=== PATIENT | male | born 1940 | race Caucasian/White ===

== ENCOUNTER 2017-03-29 02:28 | Inpatient (IN) | payer MEDICARE, OTHER ==
[~2017-03-29] VITALS: Ht 165.1 cm; Wt 61.7 kg
[2017-03-29] VITALS (9 sets, daily range): BP systolic 158–206; BP diastolic 72–83
[2017-03-29] MEDS ORDERED: LEVEMIR100 U/M1 (03:20)
[2017-03-29 03:26] LABS: CALCIUM 8.9 mg/dL (8.5-10.1); CARBON DIOXIDE 29.9 mmol/L (21-32); CHLORIDE SERUM 106 mmol/L (98-107); CREATININE SERUM 2.1 mg/dL (0.7-1.3); GLUCOSE SERUM 92 mg/dL (74-106); POTASSIUM SERUM 3.1 mmol/L (3.5-5.1); SODIUM SERUM 144 mmol/L (136-145)
[2017-03-29 03:33] LABS: ALKALINE PHOSPHATASE 86 U/L (46-116); ALT/SGPT 22 U/L (16-63); AST/SGOT 22 U/L (15-37); BILIRUBIN TOTAL 0.23 mg/dL (0.20-1.00); TOTAL PROTEIN, SERUM 7.5 g/dL (6.4-8.2)
[2017-03-29 03:34] LABS: ALBUMIN 2.9 g/dL (3.4-5.0)
[2017-03-29 03:39] LABS: BASOPHIL % 0.4 % (0-2); PLATELET COUNT 203 x10^3mcL (130-400); RED CELL DISTRIBUTION WIDTH 12.6 % (11.5-14.5)
[2017-03-29 05:04] LABS: T3 TOTAL 1.06 ng/mL
[2017-03-29 05:07] LABS: CHOLESTEROL/HDL RATIO 3.9; MAGNESIUM 1.9 mg/dL (1.8-2.4); PHOSPHOROUS 3.4 mg/dL (2.5-4.9)
[2017-03-29 05:09] LABS: FREE T4 1.2 ng/dL (0.76-1.46); FREE THYROXINE INDEX 3.3 ug/dL (1.4-4.5); T4(THYROXINE) 10.3 ug/dL (4.7-13.3)
[2017-03-29 05:14] LABS: microscopic required? YES; urine erythrocyte TRACE (NEGATIVE)
[2017-03-29 05:24] LABS: AMPHETAMINE QUAL UR NONE DETECTED (NEG <=1000)
[2017-03-29] MEDS ORDERED: CARVEDILOL12.5 M1 PO (15:34)
[2017-03-29] MEDS ORDERED: FUROSEMIDE20 MG PO (15:34)
[2017-03-29] MEDS ORDERED: HYDRALAZINE HCL25 MG PO (15:34)
[2017-03-29] MEDS ORDERED: BENAZEPRIL HYDR40 M1 PO (15:34)
[2017-03-29] MEDS ORDERED: GOOD SENSE ASPI81 M3 PO (15:42)
[2017-03-29 18:22] LABS: CARBON DIOXIDE 23.8 mmol/L (21-32); CHLORIDE SERUM 110 mmol/L (98-107); CREATININE SERUM 1.9 mg/dL (0.7-1.3); GLUCOSE SERUM 78 mg/dL (74-106); POTASSIUM SERUM 3.7 mmol/L (3.5-5.1); SODIUM SERUM 144 mmol/L (136-145)
[2017-03-30 05:56] VITALS: BP 152/66
[2017-03-30 07:38] LABS: CALCIUM 8.4 mg/dL (8.5-10.1); CARBON DIOXIDE 23.8 mmol/L (21-32); CHLORIDE SERUM 109 mmol/L (98-107); CREATININE SERUM 1.8 mg/dL (0.7-1.3); GLUCOSE SERUM 264 mg/dL (74-106); POTASSIUM SERUM 3.9 mmol/L (3.5-5.1); SODIUM SERUM 141 mmol/L (136-145)
[2017-03-30 08:15] LABS: BASOPHIL % 0.6 % (0-2); PLATELET COUNT 164 x10^3mcL (130-400); RED CELL DISTRIBUTION WIDTH 12.9 % (11.5-14.5)
[2017-03-30 10:06] VITALS: BP 176/75
[2017-03-30 13:10] VITALS: BP 164/84
[2017-03-30 18:02] VITALS: BP 164/81
[2017-03-30 21:35] VITALS: BP 159/51
[2017-03-31 06:10] VITALS: BP 182/85
[2017-03-31 10:20] VITALS: BP 140/76
[2017-03-31 10:50] LABS: BASOPHIL % 0.3 % (0-2); PLATELET COUNT 163 x10^3mcL (130-400); RED CELL DISTRIBUTION WIDTH 12.8 % (11.5-14.5)
[2017-03-31 10:54] LABS: CALCIUM 8.1 mg/dL (8.5-10.1); CARBON DIOXIDE 25.3 mmol/L (21-32); CHLORIDE SERUM 108 mmol/L (98-107); CREATININE SERUM 1.7 mg/dL (0.7-1.3); GLUCOSE SERUM 284 mg/dL (74-106); SODIUM SERUM 140 mmol/L (136-145)
[2017-03-31 16:26] VITALS: BP 155/67
[2017-03-31 21:25] VITALS: BP 163/70
[2017-04-01 06:11] VITALS: BP 148/69
[2017-04-01 09:45] VITALS: BP 170/87
[2017-04-01] MEDS ORDERED: I5 PO (10:06)
[2017-04-01] MEDS ORDERED: NIT0.4 SL (10:07)
[2017-04-01] MEDS ORDERED: CORE25 PO (10:08)
[2017-04-01] MEDS ORDERED: ZES20 PO (10:09)
[2017-04-01] MEDS ORDERED: L40 PO (10:20)
[2017-04-01] MEDS ORDERED: COL100 PO (10:22)
[2017-04-01] MEDS ORDERED: THERA TABS1 TAB PO (10:23)
[2017-04-01] MEDS ORDERED: LEVEMIR100 U/M1 SQ (11:00)
[2017-04-01 11:55] VITALS: BP 152/69
[2017-04-01 13:29] VITALS: BP 152/69
== END 2017-04-01 14:46 | disposition home or self-care (01) | DRG 917 ==
LOC: ED 02:28 → EDBD 04:19 → DU 04:19 → MU 04:19 → DU 05:15 → MU 03-30 06:45
PROVIDERS: Emergency Medicine; Family Medicine Sports Medicine
DX: T38.3X1A Poisoning by insulin and oral hypoglycemic [antidiabetic] drugs, accidental (unintentional), initial encounter (principal); N17.0 Acute kidney failure with tubular necrosis; K85.90 Acute pancreatitis without necrosis or infection, unspecified; G92 Toxic encephalopathy; E44.0 Moderate protein-calorie malnutrition; I16.1 Hypertensive emergency; E11.649 Type 2 diabetes mellitus with hypoglycemia without coma; E87.6 Hypokalemia; E11.21 Type 2 diabetes mellitus with diabetic nephropathy; I10 Essential (primary) hypertension; D63.8 Anemia in other chronic diseases classified elsewhere; E03.9 Hypothyroidism, unspecified; Z68.22 Body mass index [BMI] 22.0-22.9, adult; Z87.891 Personal history of nicotine dependence; Z79.4 Long term (current) use of insulin; Y92.009 Unspecified place in unspecified non-institutional (private) residence as the place of occurrence of the external cause
CPT/HCPCS: 76770; 83880; 84439; J0360; J1815; J3480; J3490; J7030; Q0092

== ENCOUNTER 2018-03-11 09:18 | Emergency (ER) | payer MEDICARE, OTHER ==
[~2018-03-11] VITALS: Ht 165.1 cm; Wt 60.5 kg
[~2018-03-11 09:18] MED LIST: BENAZEPRIL HYDR40 M1 PO; CARVEDILOL12.5 M1 PO; COL100 PO; CORE25 PO; FUROSEMIDE20 MG PO; GOOD SENSE ASPI81 M3 PO; HYDRALAZINE HCL25 MG PO; I5 PO; L40 PO; LEVEMIR100 U/M1; LEVEMIR100 U/M1 SQ; NIT0.4 SL; THERA TABS1 TAB PO; ZES20 PO
[2018-03-11 09:28] VITALS: Ht 165.1 cm; Wt 60.5 kg
[2018-03-11 10:35] VITALS: BP 188/84
== END 2018-03-11 10:35 | disposition home or self-care (01) ==
LOC: ED 09:18
DX: S81.801A Unspecified open wound, right lower leg, initial encounter (principal); L03.115 Cellulitis of right lower limb; I10 Essential (primary) hypertension; E11.9 Type 2 diabetes mellitus without complications; X58.XXXA Exposure to other specified factors, initial encounter; Y93.89 Activity, other specified; Y92.89 Other specified places as the place of occurrence of the external cause; Y99.8 Other external cause status
CPT/HCPCS: Q0092